=== PATIENT | male | born 1955 | race Caucasian/White ===

== ENCOUNTER 2017-11-20 08:47 | Emergency (ER) | payer OTHER ==
--- NOTE | 2017-11-20 08:53 | EDPHY ---
H & P Time Seen by Provider: 11/20/17 08:47 HPI/ROS: CHIEF COMPLAINT: Grand mal seizure HISTORY OF PRESENT ILLNESS: Patient arrives by EMS as a stroke alert. Apparently he had a previous ischemic stroke and has a seizure disorder on Tegretol. At baseline he is right-sided weakness, there is a question of a facial droop at baseline. Today was noted to have a grand mal seizure and his called EMS. Apparently per EMS she told them that his right-sided facial droop was new and he arrives as a stroke alert. On arrival the patient is alert although he does appear a bit postictal stating"this isn't a stroke."He has no medical complaints at this time. However further history and review of systems is limited by the patient's altered mental status and that he thinks it is 20, knows he is in a hospital but does not know what city, does not remember the event. REVIEW OF SYSTEMS: Eye: no change in vision ENT: no sore throat Cardiac: no chest pain or syncope Pulmonary: no cough or SOB Abdomen: no vomiting, diarrhea, abdominal pain Musculoskeletal: no back pain or neck pain Skin: no rash Neuro: no headache Constitutional: no fever : no urinary symptoms A comprehensive 10 point review of systems is otherwise negative but limited by patient's mental status is noted above. PAST MEDICAL HISTORY: Seizure disorder and previous stroke Social history: , not present on arrival but history via EMS through her. Visiting from [place]. General Appearance: Alert and conversant, cooperative. Eyes: No scleral icterus. Pupils equal reactive extraocular motion intact. ENT, Mouth: Normal mucous membranes. No tongue laceration or abrasion. Respiratory: Normal respiratory effort, breath sounds equal, lungs are clear to auscultation. Cardiovascular: Regular rate and rhythm. Gastrointestinal: Abdomen is soft and non tender. Neurological: Alert, right facial droop, right upper and lower extremity weakness; flexion contracture of the right elbow and minimal movement of the right hand but he can move the right shoulder. He can lift the right leg off the bed but has weakness in both dorsiflexion and plantar flexion of the right foot. Skin: Bruising over the right forearm but no tenderness there. Musculoskeletal: No spinal or extremity bony tenderness. Psychiatric: Not agitated. Emergency Department course/MDM: Patient had a grand mal seizure, tells me he has a right facial droop at baseline and that his neurologic deficits are not new, stroke alert canceled by myself on arrival. Plan for i-STAT, CT head and angio. 915: Old left ischemic CVA with encephalomalacia on CT, reviewed with Dr. Mcclain. No bleed. 931: Results and patient discussed with family and daughter. They think he is back to normal at this time. They denied seeing any new facial droop after his seizure today; the reports that 911 was asking her if he had a facial droop during the time he had a seizure and she was unable to evaluate. He started having seizures after his stroke in 2002, his last seizure before today was 2004. He is prescribed Tegretol 100 mg a day but has only been taking 200 mg a day for a while. Call is placed to his doctor in [facility], Dr. Durán. 940: Yojana SHARPE for Leeanna,go back to 400mg/day tegretol, and followup on return. 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 Constitutional: Initial Vital Signs Temperature (C) 36.8 C 11/20/17 09:12 Heart Rate 78 11/20/17 09:12 Respiratory Rate 18 11/20/17 09:12 Blood Pressure 161/87 H 11/20/17 09:12 O2 Sat (%) 96 11/20/17 09:12 O2 Delivery Mode Room Air Allergies/Adverse Reactions: No Known Allergies Allergy (Unverified 11/20/17 09:19) Home Medications: Medication Instructions Recorded Aspirin 11/20/17 Tegretol 11/20/17 Medical Decision Making - Diagnostics EKG Interpretation: 12-lead EKG interpreted by me; official reading is in trace master. My interpretation is sinus rhythm with first-degree AV block, late anterior RS transition Imaging Results: Imaging Impressions Head CT 11/20/17 08:53 Impression: 1. No acute intracranial hemorrhage or evidence of acute cortical ischemia. 2. Large region of encephalomalacia involving the left middle cerebral artery territory. Findings discussed with Emergency Department physician, Troy Hong, on 11/20/2017 at 9:12 a.m. Head CTA 11/20/17 08:53 Impression: 1. 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 2. Intracranial arterial system otherwise widely patent. Findings discussed with Emergency Department physician, Troy Hong, on 11/20/2017 at 9:35 a.m. Neck CTA 11/20/17 08:53 Impression: 1. Dilated, 4.4 cm, ascending aorta. 2. Mild narrowing of bilateral carotid bulbs and internal carotid arteries due to mixed calcified and noncalcified plaque. No hemodynamically significant stenosis. 3. Moderate stenosis origin of right vertebral artery. 4. No occlusion or acute dissection. Findings discussed with Emergency Department physician, Troy Hong, on 11/20/2017 at 9:35 a.m. Measurement of carotid stenosis is based on the residual internal carotid diameter with [place] Symptomatic Carotid Endarterectomy Trial (NASCET) based stenosis levels. Imaging: Discussed imaging studies w/ call or contact centre manager Radiologist - Data Points Laboratory Results: Laboratory Results 11/20/17 08:54 11/20/17 08:54 11/20/17 11/20/17 11/20/17 08:56 08:54 08:54 WBC 4.92 10^3/uL 10^3/uL (3.80-9.50) RBC 4.37 10^6/uL L 10^6/uL (4.40-6.38) Hgb 13.5 g/dL L g/dL (13.7-17.5) POC Hgb 14.6 gm/dL gm/dL (13.7-17.5) Hct 39.2 % L % (40.0-51.0) POC Hct 43 % % (40-51) MCV 89.7 fL fL (81.5-99.8) MCH 30.9 pg pg (27.9-34.1) MCHC 34.4 g/dL g/dL (32.4-36.7) RDW 14.5 % % (11.5-15.2) Plt Count 154 10^3/uL 10^3/uL (150-400) MPV 9.2 fL fL (8.7-11.7) Neut % (Auto) 39.5 % % (39.3-74.2) Lymph % (Auto) 43.3 % % (15.0-45.0) Randolph % (Auto) 13.8 % H % (4.5-13.0) Eos % (Auto) 2.2 % % (0.6-7.6) Baso % (Auto) 0.8 % % (0.3-1.7) Nucleat RBC Rel Count 0.0 % % (0.0-0.2) Absolute Neuts (auto) 1.94 10^3/uL 10^3/uL (1.70-6.50) Absolute Lymphs (auto) 2.13 10^3/uL 10^3/uL (1.00-3.00) Absolute Monos (auto) 0.68 10^3/uL 10^3/uL (0.30-0.80) Absolute Eos (auto) 0.11 10^3/uL 10^3/uL (0.03-0.40) Absolute Basos (auto) 0.04 10^3/uL 10^3/uL (0.02-0.10) Absolute Nucleated RBC 0.00 10^3/uL 10^3/uL (0-0.01) Immature Gran % 0.4 % % (0.0-1.1) Immature Gran # 0.02 10^3/uL 10^3/uL (0.00-0.10) POC Sodium 138 mEq/L mEq/L (135-145) Sodium 134 mEq/L L mEq/L (135-145) POC Potassium 3.6 mEq/L mEq/L (3.3-5.0) Potassium 3.9 mEq/L mEq/L (3.3-5.0) POC Chloride 98 mEq/L mEq/L (97-110) Chloride 99 mEq/L mEq/L (97-110) Carbon Dioxide 25 mEq/l mEq/l (22-31) Anion Gap 10 mEq/L mEq/L (8-16) POC BUN 5 mg/dL L mg/dL (7-23) BUN 7 mg/dL mg/dL (7-23) Creatinine 0.6 mg/dL L mg/dL (0.7-1.3) POC Creatinine 0.6 mg/dL L mg/dL (0.7-1.3) Estimated GFR > 60 Glucose 105 mg/dL H mg/dL (70-100) POC Glucose 104 mg/dL H mg/dL (70-100) Calcium 9.3 mg/dL mg/dL (8.5-10.4) Carbamazepine 4.60 ug/mL ug/mL (4.0-12.0) Point of Care Test Results: Chemistry 11/20/17 08:56 POC Sodium 138 mEq/L mEq/L (135-145) POC Potassium 3.6 mEq/L mEq/L (3.3-5.0) POC Chloride 98 mEq/L mEq/L (97-110) POC BUN 5 mg/dL L mg/dL (7-23) POC Creatinine 0.6 mg/dL L mg/dL (0.7-1.3) POC Glucose 104 mg/dL H mg/dL (70-100) ISTAT H&H 11/20/17 08:56 POC Hgb 14.6 gm/dL gm/dL (13.7-17.5) POC Hct 43 % % (40-51) Departure - Departure Disposition: Home, Routine, Self-Care Clinical Impression: Seizure disorder Condition: Good Instructions: Epilepsy (ED), Carbamazepine (By mouth) Additional Instructions: Increase your oral Tegretol dose to 400 mg a day as prescribed. Referrals: Patient,NotPresent [Unknown] - As per Instructions (Dr. Durán your PCP in [place])
[2017-11-20 09:03] LABS: PLATELET COUNT 154 10^3/uL (150-400)
--- NOTE | 2017-11-20 09:18 | CPEKG ---
Heart Rate: 73 RR Interval: 822 P-R Interval: 224 QRSD Interval: 92 QT Interval: 380 QTC Interval: 419 P [place]: 68 QRS [place]: 10 T Wave [place]: 68 EKG Severity - ABNORMAL ECG - EKG Impression: SINUS RHYTHM EKG Impression: FIRST DEGREE AV BLOCK EKG Impression: BORDERLINE R WAVE PROGRESSION, ANTERIOR LEADS Electronically Signed By: Troy Hong 20-Nov-2017 09:22:53
[2017-11-20 10:11] VITALS: BP 142/81
== END 2017-11-20 10:27 | disposition home or self-care (01) ==
DX: G40.909 Epilepsy, unspecified, not intractable, without status epilepticus (principal); Z79.82 Long term (current) use of aspirin
CPT/HCPCS: 82435-PO; 82565-PO; 82947-PO; 84132-PO; 84295-PO; 84520-PO; 85014-PO